=== PATIENT | male | born 1980 | race Caucasian/White ===

== ENCOUNTER 2017-01-24 04:39 | Emergency (ER) | payer OTHER ==
[2017-01-24 05:24] VITALS: BP 118/77
== END 2017-01-24 05:24 | disposition home or self-care (01) ==
LOC: ED 04:39
DX: S05.02XA Injury of conjunctiva and corneal abrasion without foreign body, left eye, initial encounter (principal); Z79.899 Other long term (current) drug therapy; X58.XXXA Exposure to other specified factors, initial encounter; Y93.89 Activity, other specified; Y92.810 Car as the place of occurrence of the external cause; Y99.8 Other external cause status

== ENCOUNTER 2017-12-22 15:56 | Emergency (ER) | payer OTHER ==
[~2017-12-22] VITALS: Ht 182.9 cm; Wt 107.5 kg
[2017-12-22 16:04] VITALS: Ht 182.9 cm; Wt 107.5 kg
[2017-12-22 17:46] VITALS: BP 122/83
== END 2017-12-22 17:46 | disposition home or self-care (01) ==
LOC: ED 15:56
DX: L02.31 Cutaneous abscess of buttock (principal); J45.909 Unspecified asthma, uncomplicated; Z88.0 Allergy status to penicillin
CPT/HCPCS: J0696; J2001; J3490

== ENCOUNTER 2017-12-24 07:54 | Emergency (ER) | payer OTHER ==
[~2017-12-24] VITALS: Ht 182.9 cm; Wt 107.5 kg
[2017-12-24 08:06] VITALS: BP 111/77; Ht 182.9 cm; Wt 107.5 kg
== END 2017-12-24 08:48 | disposition home or self-care (01) ==
LOC: ED 07:54
DX: Z48.01 Encounter for change or removal of surgical wound dressing (principal); Z88.0 Allergy status to penicillin; J45.909 Unspecified asthma, uncomplicated

== ENCOUNTER 2018-07-16 13:10 | Emergency (ER) | payer OTHER ==
[~2018-07-16] VITALS: Ht 182.9 cm; Wt 105.2 kg
[2018-07-16 13:18] VITALS: Ht 182.9 cm; Wt 105.2 kg
[2018-07-16 15:50] VITALS: BP 136/98
== END 2018-07-16 15:50 | disposition home or self-care (01) ==
LOC: ED 13:10
DX: M54.42 Lumbago with sciatica, left side (principal); J45.909 Unspecified asthma, uncomplicated; Z88.0 Allergy status to penicillin
CPT/HCPCS: J1885

== ENCOUNTER 2018-12-01 17:23 | Emergency (ER) | payer OTHER ==
[~2018-12-01] VITALS: Ht 182.9 cm; Wt 111.1 kg
[2018-12-01 17:31] VITALS: Ht 182.9 cm; Wt 111.1 kg
[2018-12-01 19:05] VITALS: BP 119/71
== END 2018-12-01 19:05 | disposition home or self-care (01) ==
LOC: ED 17:23
DX: S61.012A Laceration without foreign body of left thumb without damage to nail, initial encounter (principal); Z88.0 Allergy status to penicillin; J45.909 Unspecified asthma, uncomplicated; W26.0XXA Contact with knife, initial encounter; Y93.89 Activity, other specified; Y92.89 Other specified places as the place of occurrence of the external cause; Y99.8 Other external cause status
CPT/HCPCS: J2001